=== PATIENT | female | born 1990 | race Caucasian/White ===

== ENCOUNTER 2022-07-11 19:29 | Inpatient (IN) | payer OTHER ==
[2022-07-11 20:29] VITALS: BMI 22.9
[2022-07-11] MEDS ORDERED: LACTATED RINGERS SOLUTION 1000 ML INFUS.BAG IV ONE (20:35)
[2022-07-11 21:33] LABS: VENOUS BASE EXCESS -15.5 mmol/L (-2-2); VENOUS O2 SATURATION 78.1 % (70-80); VENOUS PCO2 31.7 mmHg (38-52)
[2022-07-11 21:37] LABS: VENOUS PH 7.181 (7.310-7.410)
[2022-07-11 21:39] LABS: MCH 25.4 pg (25.7-33.7); MCHC 30.9 g/dl (32.0-36.0); MEAN CELL VOLUME 82.1 fl (80-96); MEAN PLT VOLUME 9.6 fl (7.5-11.1); PLATELET COUNT 375 10^3/uL (134-434); RBC 5.12 M/mm3 (3.60-5.2); RDW 14.1 % (11.6-15.6); WHITE BLOOD COUNT 12.3 K/mm3 (4.0-10.0)
[2022-07-11 21:59] LABS: CHLORIDE 94 mmol/L (98-107); SODIUM 130 mmol/L (136-145)
[2022-07-11 22:02] LABS: ALBUMIN 3.6 g/dl (3.4-5.0); ANION GAP 26 MMOL/L (8-16); BLOOD UREA NITROGEN 26.5 mg/dL (7-18); CALCIUM 11.3 mg/dL (8.5-10.1); CO2 10 mmol/L (21-32)
[2022-07-11 22:05] LABS: SGOT/AST 15 U/L (15-37); SGPT/ALT 16 U/L (13-61)
[2022-07-11 22:06] LABS: CREATININE 1.1 mg/dL (0.55-1.3)
[2022-07-11 22:07] LABS: BILIRUBIN,TOTAL 0.4 mg/dL (0.2-1); TOT PROT 8.4 g/dl (6.4-8.2)
[2022-07-11 22:08] LABS: ALK PHOS 135 U/L (45-117)
[2022-07-11] MEDS ORDERED: INSULIN REGULAR HUMAN 100 UNITS/ML *VIAL IVPUSH ONE (22:12)
[2022-07-11] MEDS ORDERED: SODIUM CHLORIDE 0.9%/KCL 20 MEQ/1,000 ML INFUS.BAG IV SCH (22:15)
[2022-07-11 22:22] LABS: GLUCOSE,RANDOM 474 mg/dL (74-106)
[2022-07-11] MEDS ORDERED: ACETAMINOPHEN 1000 MG/100 ML BAG IVPB ONE (22:27)
[2022-07-11] MEDS ORDERED: INSULIN REGULAR 100 UNITS in SODIUM CHLORIDE 99 ML IVPB SCH (22:30)
[2022-07-11] MEDS ORDERED: ONDANSETRON 4 MG/2 ML VIAL IVPUSH ONE (23:09)
[2022-07-11] MEDS ORDERED: ACETAMINOPHEN INJECTION 100 ML IVPB ONE (23:32)
[2022-07-11] MEDS ORDERED: ONDANSETRON 4 MG/2 ML VIAL ONE (23:32)
[2022-07-12] MEDS ORDERED: FAMOTIDINE 10 MG TABLET PO SCH (01:09)
[2022-07-12] MEDS ORDERED: FAMOTIDINE 20 MG TABLET ONE ×2 (01:16→11:21)
[2022-07-12] MEDS ORDERED: DEXTROSE 5%-0.45% SALINE 1,000 ML IV SCH ×2 (04:45→18:15)
[2022-07-12] MEDS ORDERED: INSULIN SLIDING SCALE (NOVOLOG) 1 VIAL SQ SCH ×3 (05:00→16:30)
[2022-07-12 08:43] LABS: BASO % 0.3 % (0-2.0); EOS % 0.8 % (0-4.5); HEMATOCRIT 37.6 % (32.4-45.2); HEMOGLOBIN 11.5 GM/dL (10.7-15.3); LYMPH % 11.4 % (8-40); MCH 25.2 pg (25.7-33.7); MCHC 30.6 g/dl (32.0-36.0); MEAN CELL VOLUME 82.3 fl (80-96); MEAN PLT VOLUME 8.9 fl (7.5-11.1); MONO % 13.3 % (3.8-10.2); NEUT % 74.2 % (42.8-82.8); PLATELET COUNT 302 10^3/uL (134-434); RBC 4.57 M/mm3 (3.60-5.2); RDW 13.8 % (11.6-15.6); WHITE BLOOD COUNT 11.2 K/mm3 (4.0-10.0)
[2022-07-12] MEDS ORDERED: ONDANSETRON 4 MG/2 ML VIAL IVPUSH PRN (08:47)
[2022-07-12 08:57] LABS: BLOOD UREA NITROGEN 22.1 mg/dL (7-18); CALCIUM 10.4 mg/dL (8.5-10.1); MAGNESIUM 2.2 mg/dL (1.8-2.4)
[2022-07-12 09:00] LABS: CREATININE 0.8 mg/dL (0.55-1.3); PHOSPHOROUS 1.9 mg/dL (2.5-4.9)
[2022-07-12 09:01] LABS: TOT PROT 6.7 g/dl (6.4-8.2)
[2022-07-12 09:02] LABS: BILIRUBIN,TOTAL 0.4 mg/dL (0.2-1)
[2022-07-12] MEDS ORDERED: NAPH,MB-DB/K PH,MBDB POWDER PACKET PO ONE (09:13)
[2022-07-12] MEDS ORDERED: INSULIN REGULAR 100 UNITS in SODIUM CHLORIDE 99 ML IVPB SCH ×2 (11:15→18:15)
[2022-07-12] MEDS: ENOXAPARIN NA (PORCINE) 40 MG/0.4 ML DISP.SYRIN SQ SCH (11:19)
[2022-07-12] MEDS: FAMOTIDINE 20 MG TABLET PO SCH (11:19)
[2022-07-12] MEDS ORDERED: ENOXAPARIN NA (PORCINE) 40 MG/0.4 ML DISP.SYRIN SQ ONE (11:21)
[2022-07-12] MEDS ORDERED: NAPH,MB-DB/K PH,MBDB POWDER PACKET ONE (11:21)
[2022-07-12] MEDS ORDERED: SODIUM CHLORIDE 1,000 ML IV STA (15:08)
[2022-07-12] MEDS ORDERED: DEXTROSE 50%-WATER - 25 GM/50 ML VIAL IVPUSH ONE (17:13)
[2022-07-12] MEDS ORDERED: DEXTROSE 50%-WATER 25 GM/50 ML DISP.SYRIN ONE (17:15)
[2022-07-12 17:18] LABS: BLOOD UREA NITROGEN 16.9 mg/dL (7-18); CALCIUM 10.2 mg/dL (8.5-10.1)
[2022-07-12 17:22] LABS: CREATININE 0.7 mg/dL (0.55-1.3)
[2022-07-12] MEDS ORDERED: SODIUM CHLORIDE 1,000 ML IV SCH (18:00)
[2022-07-12] MEDS ORDERED: CHLORHEXIDINE GLUCONATE 4% CLEANSER FOR DECOLONIZATION TP SCH (22:00)
[2022-07-12] MEDS: MUPIROCIN 2% TOPICAL OINTMENT FOR DECOLONIZATION NS SCH ×2 (22:05→22:06)
[2022-07-12] MEDS: INSULIN SLIDING SCALE (NOVOLOG) 1 VIAL SQ SCH ×2 (22:05→23:00)
[2022-07-12] MEDS: INSULIN (LEVEMIR) 100 UNITS/ML UNITS SQ SCH (23:00)
[2022-07-13 01:44] LABS: CALCIUM 9.9 mg/dL (8.5-10.1)
[2022-07-13 01:45] LABS: BLOOD UREA NITROGEN 11.6 mg/dL (7-18)
[2022-07-13 01:48] LABS: CREATININE 0.7 mg/dL (0.55-1.3)
[2022-07-13 07:31] LABS: BASO % 0.6 % (0-2.0); HEMATOCRIT 34.5 % (32.4-45.2); HEMOGLOBIN 11.1 GM/dL (10.7-15.3); LYMPH % 20.7 % (8-40); MCH 25.6 pg (25.7-33.7); MCHC 32.2 g/dl (32.0-36.0); MEAN CELL VOLUME 79.7 fl (80-96); MEAN PLT VOLUME 9.4 fl (7.5-11.1); NEUT % 64.7 % (42.8-82.8); PLATELET COUNT 270 10^3/uL (134-434); RBC 4.33 M/mm3 (3.60-5.2); RDW 13.7 % (11.6-15.6); WHITE BLOOD COUNT 8.8 K/mm3 (4.0-10.0)
[2022-07-13 07:57] LABS: CALCIUM 9.7 mg/dL (8.5-10.1)
[2022-07-13 07:58] LABS: ALBUMIN 2.5 g/dl (3.4-5.0); BLOOD UREA NITROGEN 9.8 mg/dL (7-18); MAGNESIUM 2.1 mg/dL (1.8-2.4)
[2022-07-13 08:01] LABS: CREATININE 0.7 mg/dL (0.55-1.3); PHOSPHOROUS 1.3 mg/dL (2.5-4.9)
[2022-07-13 08:02] LABS: BILIRUBIN,TOTAL 0.2 mg/dL (0.2-1); TOT PROT 5.7 g/dl (6.4-8.2)
[2022-07-13] MEDS ORDERED: guaiFENesin 200 MG/10 ML 10 ML UNIT-DOSE CUPS PO PRN (08:11)
[2022-07-13] MEDS: INSULIN SLIDING SCALE (NOVOLOG) 1 VIAL SQ SCH ×3 (09:00→16:20)
[2022-07-13] MEDS ORDERED: SODIUM PHOSPHATE - 30 MM in DEXTROSE 5%-WATER - 250 ML IVPB ONE (09:00)
[2022-07-13 09:51] VITALS: BP 127/88; PULSE 97; RESP 16; TEMP 98.6
[2022-07-13] MEDS ORDERED: SODIUM CHLORIDE 1,000 ML IV SCH (10:00)
[2022-07-13] MEDS ORDERED: FAMOTIDINE 20 MG TABLET ONE (10:49)
[2022-07-13] MEDS: ENOXAPARIN NA (PORCINE) 40 MG/0.4 ML DISP.SYRIN SQ SCH (10:50)
[2022-07-13] MEDS ORDERED: ENOXAPARIN NA (PORCINE) 40 MG/0.4 ML DISP.SYRIN SQ ONE (10:50)
[2022-07-13] MEDS: FAMOTIDINE 20 MG TABLET PO SCH (10:51)
[2022-07-13] MEDS: INSULIN (LEVEMIR) 100 UNITS/ML UNITS SQ SCH (10:51)
[2022-07-13] MEDS ORDERED: guaiFENesin/CODEINE 10 ML UNIT-DOSE CUPS ONE (13:41)
[2022-07-13] MEDS ORDERED: guaiFENesin 200 MG/10 ML 10 ML UNIT-DOSE CUPS ONE (13:49)
[2022-07-13] MEDS ORDERED: NAPH,MB-DB/K PH,MBDB POWDER PACKET ONE (13:51)
[2022-07-13] MEDS ORDERED: NAPH,MB-DB/K PH,MBDB POWDER PACKET PO SCH (14:00)
== END 2022-07-13 16:45 | disposition left against medical advice (07) | DRG 420 ==
LOC: JER 19:29 → JERBED 23:06
PROVIDERS: ADMIT Internal Medicine; ATTEND Internal Medicine
DX: E10.10 Type 1 diabetes mellitus with ketoacidosis without coma (principal); E87.1 Hypo-osmolality and hyponatremia; I10 Essential (primary) hypertension
CPT/HCPCS: 0241U-QW; 36415; 80048; 80053; 82010; 82803; 82962; 83036; 83605; 83735; 84100; 84484; 84702; 85025; 85027; 93005; 93010; 99285-25